=== PATIENT | female | born 1960 | race Two or more races ===

== ENCOUNTER 2024-05-15 13:57 | Emergency (ER) | payer MEDICARE, SELFPAY ==
[2024-05-15 14:13] VITALS: BP 206/88; BP 212/97; PULSE 92; RESP 17; TEMP 36.9; O2SAT 98; BMI 30.2
--- NOTE | 2024-05-15 14:26 | XR_ITS ---
Examination: CT cervical spine without contrast 2-D sagittal reconstructions 2-D coronal reconstructions 3-D reconstructions. Exam date and time:May 15, 2024 1527 hours INDICATIONS: Patient fell today with into the neck, neck pain COMPARISON: January 23, 2024 CTDI:vol (mGy) 12.6 DLP: (mGycm) 263 Technique: Multiple 2 mm axial sections of the cervical spine have been obtained. The coronal and sagittal reconstructions have been obtained. 3-D reconstructions have been obtained. Low dose protocols were performed. One or more of the following dose reduction techniques were used; automated exposure control, adjustment of the mA and/or KV according to patient size, use of iterative reconstruction technique. Findings: Axial sections demonstrate intact base of the skull. C1 exhibit satisfactory relationship to the odontoid. No acute cervical vertebral body fracture seen. Alignment posterior spinous processes satisfactory. Impression: No acute cervical fracture.
--- NOTE | 2024-05-15 14:26 | XR_ITS ---
Examination: CT brain head without contrast. 2-D sagittal coronal reconstructions Date and time of exam:May 15, 2024 1525 hours INDICATIONS: Patient fell today with injury to the head, head pain CTDI: vol (mGy):48.6 DLP: (mGycm):1020 Technique: Multiple CT axial sections of the brain have been obtained, 5 mm slice thickness. Contrast has not been administered. 2-D sagittal, coronal reconstructions have been obtained Low dose protocols were performed. One or more of the following dose reduction techniques were used; automated exposure control, adjustment of the mA and/or KV according to patient size, use of iterative reconstruction technique. Findings: No significant ventricular enlargement. Intra-axial or extra-axial hemorrhage density is not seen. No mass effect or midline shift Basal cisterns are not remarkable. Fourth ventricle is midline. Cranial vault intact. Impression: Negative for acute hemorrhage, mass effect or midline shift
--- NOTE | 2024-05-15 14:26 | XR_ITS ---
Examination: AP chest single view TECHNIQUE: AP portable chest single view Exam date and time: May 15, 2024 1439 hours INDICATIONS: Patient fell today with injury to the hip, right leg pain FINDINGS: Mild to moderate enlargement left ventricle Moderate vascular congestion Right internal jugular dialysis catheter tip right atrium No lobar pneumonia Clavicles ribs appear intact IMPRESSION: Moderate vascular congestion No pneumothorax
--- NOTE | 2024-05-15 14:26 | XR_ITS ---
Examination: CT pelvis without intravenous contrast. 2-D sagittal and coronal reconstructions. Date and time of exam:May 15, 2024 1431 hours INDICATIONS: Patient fell today with injury to the pelvis, pelvic pain CTDI: vol (mGy) :5.88 DLP: (mGycm) : 205 Technique: Multiple 3 mm axial sections of the pelvis have been obtained with the 64 slice high resolution scanner. 2-D sagittal and coronal reconstructions. Low dose protocols were performed. One or more of the following dose reduction techniques were used; automated exposure control, adjustment of the mA and/or KV according to patient size, use of iterative reconstruction technique. Findings: Prominent osteopenia Sacral segments intact Iliac bones acetabular regions anterior rami intact Right hip bipolar hemiarthroplasty with satisfactory alignment No prosthetic hip dislocation or right hip fracture Left hip intact No pelvic hematoma Fracture first coccygeal segment sagittal image 114, age indeterminate IMPRESSION: Nondisplaced fracture first coccygeal segment, sagittal image 114, age indeterminate, clinical correlation advised
--- NOTE | 2024-05-15 14:28 | PD.EDRME ---
Rapid Medical Screening Exam RME Arrival date/time: 05/15/24 13:57 64-year-old female presents to the emergency department with has been reports patient had a fall today reports patient is on hospice Chief Complaint: Fall Time Seen by Provider: 05/15/24 14:12 Vital signs: Vital Signs Temperature 98.4 F 05/15/24 14:13 Pulse Rate 92 05/15/24 14:13 Respiratory Rate 17 05/15/24 14:13 Blood Pressure 212/97 H 05/15/24 14:13 Pulse Oximetry (%) 98 05/15/24 14:13 Oxygen Delivery Method Room Air 05/15/24 14:13
[2024-05-15 15:06] LABS: Basophils % (Auto) 1 % (0-2.5); Eosinophils # (Auto) 0.1 Thou/mm3 (0.0-0.5); Eosinophils % (Auto) 1 % (0-10); Hematocrit 37.2 % (36.0-46.0); Hemoglobin 12.1 g/dL (12.0-16.0); Immature Granulocytes % (Auto) 0 % (0-0); Immature Granulocytes Auto 0.01 Thou/mm3 (0.00-0.00); Lymphocytes % (Auto) 12 % (10-50); Mean Corpuscular HGB Conc 32.5 g/dl (31.0-37.0); Mean Corpuscular Hemoglobin 29.3 pg (25.0-35.0); Mean Corpuscular Volume 90 fL (80-100); Monocytes # (Auto) 0.4 Thou/mm3 (0.0-0.8); Monocytes % (Auto) 5 % (0-12); Neutrophils # (Auto) 7.1 Thou/mm3 (1.8-7.7); Neutrophils % (Auto) 82 % (37-80); Nucleated Red Blood Cell % 0 /100 WBC (0); Platelet Count 213 Thou/mm3 (140-440); Red Blood Count 4.13 Miln/mm3 (4.00-5.20); White Blood Count 8.7 Thou/mm3 (3.6-11.0)
[2024-05-15 15:23] LABS: Partial Thromboplastin Time 29.8 Seconds (22.0-36.0); Prothrombin Time 11.4 Seconds (9.0-12.2)
[2024-05-15 15:27] LABS: Alanine Aminotransferase 12 U/L (10-49); Albumin, Serum 4.2 gm/dL (3.4-4.8); Albumin/Globulin Ratio 1.1 (1.2-2.2); Alkaline Phosphatase 93 U/L (46-116); Anion Gap 9 (7-16); Aspartate Amino Transferase 30 U/L (0-34); BUN/Creatinine Ratio 7 Ratio (12-20); Bilirubin,Total 0.8 mg/dL (0.3-1.2); Blood Urea Nitrogen 19 mg/dL (9-23); Calcium 9.9 mg/dL (8.3-10.6); Calcium (Corrected) 9.9 mg/dL (8.5-10.1); Carbon Dioxide 27.3 mMol/L (20.0-31.0); Chloride 100 mMol/L (98-107); Creatinine (Component) 2.6 mg/dL (0.6-1.3); Estimated Creatinine Clearance 20.2 mL/min (>60); Glucose 81 mg/dL (74-106); Osmolality,Calculated 273 (275-295); Potassium 3.6 mMol/L (3.4-5.1); Sodium 136 mMol/L (136-145); Total Protein 8.2 gm/dL (5.7-8.2); Troponin I 0.037 ng/mL (0.0-0.045); eGFR 20 See Note
--- NOTE | 2024-05-15 19:22 | EDNOTE_ITS ---
ED General RME/HPI General Chief complaint: Fall Stated complaint: FALL R HIP AND LEG PAIN Time Seen by Provider: 05/15/24 14:12 Arrival date/time: 05/15/24 13:57 CC: Cocci pain knee pain HPI patient fell off her bed. The patient is on hospice and semiambulatory patient's states the patient has been nonambulatory for 3 months but thinks he can still walk. The patient attempted to get up while he was in the room and fell. Patient denies LOC or LOC. Patient is uncomfortable not in any acute distress localized pain is 3-4 on a 10 scale. RME / HPI RME / HPI narrative: 05/15/24 13:57 64-year-old female presents to the emergency department with has been reports patient had a fall today reports patient is on hospice Related Data Home Medications ?Medication ?Instructions ?Recorded ?Confirmed acetaminophen 650 mg 650 mg PO PRN PRN Arthritis pain 12/16/23 12/16/23 tablet,extended release alprazolam 0.25 mg tablet 0.25 mg PO QDAY 12/16/23 12/16/23 amlodipine 10 mg tablet 10 mg PO QDAY 12/16/23 12/16/23 amoxicillin 875 mg-potassium 1 tab PO BID 12/16/23 12/16/23 clavulanate 125 mg tablet aspirin 81 mg chewable tablet 81 mg PO QDAY 12/16/23 12/16/23 furosemide 20 mg tablet 20 mg PO QAM 12/16/23 12/16/23 gabapentin 600 mg tablet 600 mg PO QDAY 12/16/23 12/16/23 melatonin 10 mg tablet 10 mg PO HS PRN Sleep aid 12/16/23 12/16/23 sitagliptin phosphate 100 mg 100 mg PO QDAY 12/16/23 12/16/23 tablet (Januvia) tramadol 50 mg tablet 50 mg PO Q8H PRN Pain 12/16/23 12/16/23 Previous Rx's ?Medication ?Instructions ?Recorded acetaminophen 500 mg capsule 1,000 mg (2 x 500 mg) PO Q6H PRN 01/09/24 fever or pain #30 caps cephalexin 500 mg capsule 500 mg PO QID #40 caps 01/09/24 meloxicam 7.5 mg tablet 7.5 mg PO QDAY #10 tabs 05/15/24 Allergies Allergy/AdvReac Type Severity Reaction Status Date / Time daptomycin Allergy Severe ABDOMINAL Verified 03/19/24 14:17 PAIN vancomycin Allergy Severe Hives Verified 03/19/24 14:17 fentanyl AdvReac Severe Fatigued Verified 03/19/24 14:17 Review of Systems Review of Systems Narrative Review of Systems: GEN: No fever, no chills, no weight loss EYES: No discharge, no visual changes, no pain HEENT: No ear pain, no congestion, no sore throat PULM: No shortness of breath, no cough, no congestion CV: No chest pain, no dyspnea on exertion, no palpitations GI: No nausea, no vomiting, no diarrhea, no pain, no constipation : No frequency, no urgency, no dysuria MUSC/SKEL: + joint pain, no back pain SKIN: No rash PSYCH: No hallucinations, no depression HEME/LYMPH: No easy bleeding or bruising tendencies NEURO: No weakness, no headache ED Exam Narrative Physical exam: [General: Obese not in any acute distress Head normocephalic HEENT: Within acceptable limits Neck is supple nontender Chest equal chest rise nontender to palpation Respiratory: Clear to auscultation no wheezes crackles or rubs CV: Rate rhythm is regular no murmurs rubs or clicks Abdomen is distended secondary to body habitus soft nontender no masses positive bowel sounds all 4 quadrants Back: No CVA tenderness no spinous process tenderness from cervical spine thoracic and lumbar spine Skin: Pale, no ecchymosis induration or ulcerations. Intact no petechiae rash induration ulceration or crepitus Extremities moving extremities poorly secondary to deconditioning. Neuro: Awake alert oriented x3 Glascow coma 15 no focal deficits] Course Quality Measures none Orders Category Date Time Status EKG (ED ONLY) *Do not use* NOW Care 05/15/24 14:[address] cervical spine wo con Stat Exams 05/15/24 14:[address] head/brain wo con Stat Exams 05/15/24 14:[address] pelvis wo con Stat Exams 05/15/24 14:26 Completed EKG (ED Only) Stat Exams 05/15/24 14:27 Ordered XR chest 1V portable Stat Exams 05/15/24 14:26 Completed CBC Stat Lab 05/15/24 14:53 Completed Comprehensive Metabolic Panel Stat Lab 05/15/24 14:53 Completed PT [Prothrombin Time with INR] Stat Lab 05/15/24 14:53 Completed PTT [Partial Thromboplastin Time] Stat Lab 05/15/24 14:53 Completed Troponin I Stat Lab 05/15/24 14:53 Completed cloNIDine HCL [Catapres] Med 05/15/24 19:53 Discontinued 0.2 mg PO X1 ONE hydrALAZINE HCL [Apresoline] Med 05/15/24 19:53 Discontinued 25 mg PO X1 ONE Vital Signs Vital signs: Vital Signs Temperature 98.4 F 05/15/24 14:13 Pulse Rate 92 05/15/24 14:13 Respiratory Rate 17 05/15/24 14:13 Blood Pressure 212/97 H 05/15/24 14:13 Pulse Oximetry (%) 98 05/15/24 14:13 Oxygen Delivery Method Room Air 05/15/24 14:13 [facility] Patient data External records reviewed:: [facility] previous records Clinical information provided by:: patient and spouse Social determinants that could affect healthcare access:: none Patient has the following chronic illnesses:: On hospice How is presenting disease/condition affected by chronic disease/condition?: u neffected by Evaluation data The following diagnostics were reviewed and interpreted by me:: lab results and radiology exam(s) Lab and/or radiology exams considered but not ordered:: CT of the head and C-spine negative for any acute findings Pelvic CT shows a coccyx fracture All radiologic findings as interpreted by me and read by radiology. Interpretation Summary: Coccyx fracture Medications Medications considered but not ordered:: None Medication administrations:: Medication Administration History Discontinued Medications Clonidine (Clonidine Hcl 0.1 Mg Tablet) 0.2 mg PO X1 ONE Stop: 05/15/24 19:54 Last Admin: 05/15/24 19:58 Dose: 0.2 mg Documented By: BHARAT Hydralazine HCl (Hydralazine Hcl 25 Mg Tablet) 25 mg PO X1 ONE Stop: 05/15/24 19:54 Last Admin: 05/15/24 19:58 Dose: 25 mg Documented By: BHARAT None Consultations Consultation(s) initiated? (list below): No Diagnosis Differential Diagnosis ED Complaint MDM: Fall coccyx fracture closed head injury Most likely diagnosis given after review of the tests above:: Fall coccyx fracture Admission Indicated Admission indicated?: not indicated Explain why admission is indicated or not indicated:: Stable Admission Request Was there a request for admission?: No Disposition Plan Disposition Plan: Discharge Discharge Attestation Discharge Attestation: The patient and all family members were given an opportunity to ask questions and understood the discharge instructions. Discharge instructions specifically effects, indications for sooner follow up or return to the emergency department, and the expected course of current diagnosis. Patient condition: Stable Medical Decision Making Differential Diagnosis Differential Diagnosis: Fall coccyx fracture closed head injury Lab Data 05/15/24 14:53 05/15/24 14:53 Labs: Lab Results 05/15/24 Range/Units 14:53 WBC 8.7 (3.6-11.0) Thou/mm3 RBC 4.13 (4.00-5.20) Miln/mm3 Hgb 12.1 (12.0-16.0) g/dL Hct 37.2 (36.0-46.0) % MCV 90 (80-100) fL MCH 29.3 (25.0-35.0) pg MCHC 32.5 (31.0-37.0) g/dl RDW Std Deviation 47.0 H (36.4-46.3) fL Plt Count 213 (140-440) Thou/mm3 Neut % (Auto) 82 H (37-80) % Lymph % (Auto) 12 (10-50) % [place] % (Auto) 5 (0-12) % Eos % (Auto) 1 (0-10) % Baso % (Auto) 1 (0-2.5) % Neut # (Auto) 7.1 (1.8-7.7) Thou/mm3 Lymph # (Auto) 1.0 (1.0-4.8) Thou/mm3 [place] # (Auto) 0.4 (0.0-0.8) Thou/mm3 Eos # (Auto) 0.1 (0.0-0.5) Thou/mm3 Baso # (Auto) 0.0 (0.0-0.2) Thou/mm3 Immature Gran # (Auto) 0.01 H (0.00-0.00) Thou/mm3 Absolute Nucleated RBC 0.00 (0.00-0.00) Thou/mm3 Immature Gran % 0 (0-0) % Nucleated RBC % 0 (0) /100 WBC PT 11.4 (9.0-12.2) Seconds INR 1.0 (0.9-1.3) APTT 29.8 (22.0-36.0) Seconds Sodium 136 (136-145) mMol/L Potassium 3.6 (3.4-5.1) mMol/L Chloride 100 (98-107) mMol/L Carbon Dioxide 27.3 (20.0-31.0) mMol/L Anion Gap 9 (7-16) BUN 19 (9-23) mg/dL Creatinine 2.6 H (0.6-1.3) mg/dL Estim Creat Clear Calc 20.2 L (>60) mL/min eGFR 20 L (60 - ) See Note BUN/Creatinine Ratio 7 L (12-20) Ratio Glucose 81 (74-106) mg/dL Calculated Osmolality 273 L (275-295) Calcium 9.9 (8.3-10.6) mg/dL Corrected Calcium 9.9 (8.5-10.1) mg/dL Total Bilirubin 0.8 (0.3-1.2) mg/dL AST 30 (0-34) U/L ALT 12 (10-49) U/L Alkaline Phosphatase 93 (46-116) U/L Troponin I 0.037 (0.0-0.045) ng/mL Total Protein 8.2 (5.7-8.2) gm/dL Albumin 4.2 (3.4-4.8) gm/dL Globulin 4.0 H (2.3-3.5) gm/dL Albumin/Globulin Ratio 1.1 L (1.2-2.2) Discharge Plan Plan Patient Disposition: HOME (Self Care) Patient condition on transfer: Stable Prescriptions/Referrals Prescriptions/Med Rec: New meloxicam 7.5 mg tablet 7.5 mg PO QDAY Qty: 10 0RF No Action gabapentin 600 mg Tablet 600 mg PO QDAY tramadol 50 mg Tablet 50 mg PO Q8H PRN (Reason: Pain) acetaminophen 650 mg Tablet Extended Release 650 mg PO PRN PRN (Reason: Arthritis pain) alprazolam 0.25 mg Tablet 0.25 mg PO QDAY amlodipine 10 mg Tablet 10 mg PO QDAY aspirin 81 mg Tablet,Chewable 81 mg PO QDAY furosemide 20 mg Tablet 20 mg PO QAM amoxicillin-pot clavulanate [Augmentin] 875-125 mg Tablet 1 tab PO BID Januvia 100 mg Tablet 100 mg PO QDAY melatonin 10 mg Tablet 10 mg PO HS PRN (Reason: Sleep aid) cephalexin 500 mg capsule 500 mg PO QID Qty: 40 0RF acetaminophen 500 mg capsule 1,000 mg PO Q6H PRN (Reason: fever or pain) Qty: 30 0RF Referrals: Sharath Irby MD [Primary Care Provider] - In 1 week Problem List Clinical Impression: Closed fracture of coccyx Patient/Caregiver Discharge Instructions Education Materials: ED Tailbone (Coccyx) Fracture Print Language: [place] Stand Alone Forms: Rima Award Info., Patient Portal Info Letter MD Attestation MD Attestation The patient was seen by the midlevel practitioner. I, the co-signing physician, was present during the entire ER visit. While I did not physically examine the patient, I was available for consultation as needed.
[2024-05-15 19:57] VITALS: BP 237/116; PULSE 82; RESP 18; TEMP 36.6; O2SAT 99
[2024-05-15 19:58] VITALS: BP 237/116; PULSE 82
[2024-05-15] MEDS: cloNIDine HCL 0.1 MG TABLET 0.2 MG PO (19:58)
[2024-05-15] MEDS: hydrALAZINE HCL 25 MG TABLET PO (19:58)
[2024-05-15 20:30] VITALS: BP 191/74; PULSE 71; RESP 18; O2SAT 99
== END 2024-05-15 20:31 | disposition home or self-care (01) ==
PROVIDERS: Nurse Practitioner Primary Care; Emergency Provider Emergency Medicine; PCP Family Medicine
DX: S32.2XXA Fracture of coccyx, initial encounter for closed fracture (principal); S19.9XXA Unspecified injury of neck, initial encounter; S09.90XA Unspecified injury of head, initial encounter; S29.9XXA Unspecified injury of thorax, initial encounter; W06.XXXA Fall from bed, initial encounter; M25.569 Pain in unspecified knee; R94.31 Abnormal electrocardiogram [ECG] [EKG]
CPT/HCPCS: 36415; 70450; 71045; 72125; 72192; 80053; 84484; 85025; 85610; 85730; 93005; 99284; A9270

== ENCOUNTER → 2024-05-29 | Outpatient (CLI) | payer MEDICARE, SELFPAY | END | disposition home or self-care (01) | LOC: SWHD 13:07 | PROVIDERS: PCP Family Medicine; Referring Provider Family Medicine; Visit Provider Student in an Organized Health Care Education/Training Program | DX: I96 Gangrene, not elsewhere classified (principal); L97.428 Non-pressure chronic ulcer of left heel and midfoot with other specified severity; L97.419 Non-pressure chronic ulcer of right heel and midfoot with unspecified severity; L97.522 Non-pressure chronic ulcer of other part of left foot with fat layer exposed; I50.9 Heart failure, unspecified; E11.40 Type 2 diabetes mellitus with diabetic neuropathy, unspecified; Z79.4 Long term (current) use of insulin; R56.9 Unspecified convulsions; N18.6 End stage renal disease; D64.9 Anemia, unspecified | CPT/HCPCS: 97597; 11042; A9270 ==